=== PATIENT | female | born 1990 | race Caucasian/White ===

== ENCOUNTER 2021-01-27 11:58 | Day surgery (SDC) | payer OTHER ==
[~2021-01-27] VITALS: Ht 160 cm; Wt 105.2 kg
[2021-01-27 11:59] VITALS: BP 129/59
--- NOTE | 2021-01-27 12:00 | NUR ---
Pt ambulated to bed 7.
--- NOTE | 2021-01-27 12:01 | NUR ---
30 Y/O F referred by Dr. Gilliland d/t miscarriage that began earlier today, no heart tones were present during exam. Pt reports peach colored light peach colored spotting that only appears when she wipes x1week . Denies n/v/d, edema, cough, SOB, palpitations, abd pain/cramping. PMH: TB, miscarriages, HTN, gestational HTN. Allx: rifampin, isoniazid SurHx: DNC, laparoscopy Rx: denies
--- NOTE | 2021-01-27 12:05 | NUR ---
Dr. Wu at bedside.
--- NOTE | 2021-01-27 12:46 | NUR ---
labs collected and given to aquatic life laborer
[2021-01-27 12:52] LABS: BASOPHILS % (AUTO) 0.3 % (0.0-2.0); EOSINOPHILS % (AUTO) 0.4 % (0.0-4.0); HEMATOCRIT 40.1 % (36-48); HEMOGLOBIN 13.2 g/dL (12.0-16.0); LYMPHOCYTES # (AUTO) 1.7 K/uL (2.5-16.5); LYMPHOCYTES % (AUTO) 15.5 % (20.5-51.1); MEAN CORPUSCULAR HEMOGLOBIN 28 pg (27-31); MEAN CORPUSCULAR HGB CONC 33 g/dL (33-37); MEAN CORPUSCULAR VOLUME 83.8 fL (80-94); MONOCYTES # (AUTO) 0.6 K/uL (0.8-1.0); MONOCYTES % (AUTO) 5.2 % (1.7-9.3); NEUTROPHILS # (AUTO) 8.8 K/uL (1.8-7.7); NEUTROPHILS % (AUTO) 78.6 % (42.2-75.2); PLATELET COUNT (AUTO) 249 K/uL (140-450); RED BLOOD CELL COUNT(AUTO) 4.79 MIL/uL (4.20-5.40); RED CELL DISTRIBUTION WIDTH 15.9 % (11.6-13.7); WHITE BLOOD COUNT (AUTO) 11.2 K/uL (4.8-10.8)
--- NOTE | 2021-01-27 13:53 | NUR ---
REPORT GIVEN TO COTTON SEED CULLERDERRELL GANNON. PT TAKEN TO OR VIA [facility].
[2021-01-27] MEDS ORDERED: ONDANSETRON 4 MG/2 ML VIAL IVP PRN (14:15)
[2021-01-27] MEDS ORDERED: HYDROmorphone 1 MG/ML AMP IVP PRN (14:15)
[2021-01-27] MEDS ORDERED: PROPOFOL 200 MG/20 ML VIAL IV ONE (14:25)
[2021-01-27] MEDS ORDERED: DEXAMETHASONE 4 MG/ML VIAL ONE (14:25)
[2021-01-27] MEDS ORDERED: ONDANSETRON 4 MG/2 ML VIAL ONE (14:25)
[2021-01-27] MEDS ORDERED: KETOROLAC 30 MG/ML VIAL ONE (14:25)
[2021-01-27] MEDS ORDERED: DESFLURANE 240 ML BTL INH ONE (14:25)
[2021-01-27] MEDS ORDERED: METOCLOPRAMIDE 10 MG/2 ML INJ VIAL ONE ×2 (14:25→15:05)
--- NOTE | 2021-01-27 15:49 | NUR ---
PT RECEIVED FROM OR NURSE.. PT RESTING IN BED EYES CLOSED. EASY TO AROUSE.NO S/S OF DISTRESS. CALL LIGHT IS WITHIN REACH. WILL CONTINUE TO MONITOR
[2021-01-27 16:22] VITALS: BP 118/64
--- NOTE | 2021-01-27 17:15 | NUR ---
PT VOIDED. PT DISCHARGED PER MD ORDER. PT STABLE ABLE TO AMBULATE. PT LEFT VIA WHEEL NATALIYA. PT EDUCATED AND VEBALIZED UNDERSTANDING FOR CONTINUITY OF CARE. PT IV REMOVED. CANULA INTACT. PT ID BANDS REMOVED. PT LEFT IN PRIVATE VEHICLE WITH FAMILY.
== END 2021-01-27 17:15 | disposition home or self-care (01) ==
LOC: MED 11:58 → MDS 13:03 → MTU 13:03 → MDS 17:15
PROVIDERS: ATTEND Obstetrics & Gynecology
DX: O03.4 Incomplete spontaneous abortion without complication (principal); I10 Essential (primary) hypertension; J45.909 Unspecified asthma, uncomplicated
CPT/HCPCS: 36415; 59812; 85025; 86886; 86900; 86901; 87426; 88305; J1100; J1885; J2405; J2704; J2765; J7030

== ENCOUNTER 2022-10-18 15:29 | Inpatient (IN) | payer OTHER ==
[2022-10-17 16:30] VITALS: BP 127/57
[~2022-10-18] VITALS: Ht 160 cm; Wt 113.9 kg
[2022-10-18] MEDS ORDERED: ONDANSETRON 4 MG/2 ML VIAL IVP PRN (16:40)
[2022-10-18] MEDS ORDERED: METHYLERGONOVINE 0.2 MG/ML AMP IM PRN (16:40)
[2022-10-18] MEDS ORDERED: MORPHINE SULFATE 10 MG/ML VIAL IVP PRN (16:50)
[2022-10-18 17:25] LABS: BASOPHILS % (AUTO) 0.2 % (0.0-2.0); EOSINOPHILS % (AUTO) 0.4 % (0.0-4.0); HEMOGLOBIN 12.5 g/dL (12.0-16.0); LYMPHOCYTES % (AUTO) 11.8 % (20.5-51.1); MEAN CORPUSCULAR HEMOGLOBIN 29 pg (27-31); MEAN CORPUSCULAR HGB CONC 33 g/dL (33-37); MEAN CORPUSCULAR VOLUME 88.5 fL (80-94); MONOCYTES # (AUTO) 0.5 K/uL (0.8-1.0); MONOCYTES % (AUTO) 6.1 % (1.7-9.3); NEUTROPHILS % (AUTO) 81.5 % (42.2-75.2); PLATELET COUNT (AUTO) 175 K/uL (140-450); RED CELL DISTRIBUTION WIDTH 14.4 % (11.6-13.7); WHITE BLOOD COUNT (AUTO) 8.6 K/uL (4.8-10.8)
[2022-10-18 17:48] LABS: APPEARANCE,URINE CLOUDY (CLEAR); BILIRUBIN,URINE NEGATIVE (NEGATIVE); BLOOD, URINE 2+ (NEGATIVE); COLOR,URINE YELLOW (YELLOW); LEUKOCYTE ESTERASE ,URINE 2+ (NEGATIVE); NITRITE, URINE NEGATIVE (NEGATIVE); UGLUCOSE NEGATIVE (NEGATIVE)
[2022-10-18 17:48] LABS: PROTHROMBIN TIME 9.1 secs (10.8-13.4)
[2022-10-18 17:53] LABS: ALBUMIN 2.5 g/dL (3.4-5.0); ANION GAP 14.4 (8-16); CARBON DIOXIDE 23.5 mmol/L (21-32); CREATININE 0.9 mg/dL (0.6-1.3); POTASSIUM 3.9 mmol/L (3.5-5.1); TOTAL BILIRUBIN 0.2 mg/dL (0.0-1.0)
[2022-10-18 17:55] LABS: CALCIUM OXALATE CRYSTALS,UR 0-10 /HPF (None Seen); RBC,URINE 0-5 /HPF (0-5); WBC,URINE 16-25 (MOD) /HPF (0-5)
[2022-10-18] MEDS: LACTATED RINGERS 1,000 ML IV SCH ×2 (18:07→23:35)
[2022-10-18] MEDS: MISOPROSTOL 25 MCG TAB VG SCH (18:17)
[2022-10-18] MEDS ORDERED: ASPI-1822 PO (22:00)
[2022-10-18] MEDS ORDERED: DOCU-299 PO (22:01)
[2022-10-18] MEDS ORDERED: PREN1CTB21 PO (22:04)
[2022-10-18] MEDS ORDERED: FERR325E14 PO (22:04)
[2022-10-18] MEDS ORDERED: VITA400T14 PO (22:06)
[2022-10-18] MEDS ORDERED: VITA1TAB44 PO (22:07)
[2022-10-18] MEDS ORDERED: MULTIVIT/MIN/CA/FE/FA 1 TAB ONE (22:22)
[2022-10-19] MEDS: MISOPROSTOL 25 MCG TAB VG SCH ×3 (00:29→12:47)
[2022-10-19] MEDS ORDERED: FOLIC ACID PO SCH (09:00)
[2022-10-19] MEDS ORDERED: MULTIVIT/MIN/CA/FE/FA 1 TAB PO SCH (09:00)
[2022-10-19] MEDS ORDERED: IRON PO SCH (09:00)
[2022-10-19] MEDS ORDERED: PRENATAL VIT37 PO SCH (09:00)
--- NOTE | 2022-10-19 09:00 | NUR ---
PATIENT HAS BEEN SCREENED AND CATEGORIZED LOW NUTRITION RISK. PATIENT WILL BE SEEN WITHIN 7 DAYS OF ADMISSION. 10/25/22 REVIEWED BY WESTLEY YEPEZ RD
[2022-10-19] MEDS ORDERED: INSULIN LISPRO SLIDING SCALE 100 UNITS/ML VIAL SUBQ PRN (10:55)
[2022-10-19] MEDS ORDERED: OXYTOCIN 20 UNITS in LACTATED RINGERS 1,000 ML IV SCH (13:50)
[2022-10-19] MEDS ORDERED: OXYTOCIN 20 UNITS/LR PREMIX 1,000 ML IV ONE (14:12)
[2022-10-19] MEDS: LACTATED RINGERS 1,000 ML IV SCH ×2 (16:23→18:55)
[2022-10-19] MEDS ORDERED: ROPIVACAINE 0.2%/NS PREMIX 200 ML EPI ONE (18:20)
[2022-10-19] MEDS ORDERED: ROPIVACAINE 0.2%/NS PREMIX 100 ML EPI SCH (18:55)
[2022-10-20] MEDS: LACTATED RINGERS 1,000 ML IV SCH (01:34)
[2022-10-20] MEDS ORDERED: ROPIVACAINE 0.2%/NS PREMIX 200 ML EPI ONE (07:59)
[2022-10-20] MEDS ORDERED: CITRIC ACID/SODIUM CITRATE 30 ML UDC PO ONE (09:05)
[2022-10-20] MEDS ORDERED: MORPHINE PRES FREE 10 MG/10 ML AMP IV ONE (09:37)
[2022-10-20] MEDS ORDERED: LIDOCAINE/EPI MPF 2%1:200000 10 ML VIAL INJ ONE (09:38)
[2022-10-20] MEDS ORDERED: LIDOCAINE MPF 2% 100 MG/5 ML VIAL INJ ONE ×2 (09:39→10:15)
[2022-10-20] MEDS ORDERED: ceFAZolin 2,000 MG VIAL ONE ×2 (09:44→10:15)
[2022-10-20] MEDS ORDERED: oxyCODONE/APAP 5/325 MG 1 TAB TAB PO PRN (09:55)
[2022-10-20] MEDS ORDERED: METHYLERGONOVINE 0.2 MG/ML AMP IM PRN (09:55)
[2022-10-20] MEDS ORDERED: MEASLES, MUMPS, AND RUBELLA 1 VIAL SQVAC ONE (09:55)
[2022-10-20] MEDS ORDERED: diphenhydrAMINE 50 MG/ML VIAL IVP PRN ×2 (10:00)
[2022-10-20] MEDS ORDERED: BLOOD GLUCOSE MONITORING 1 DEV DEV FS ONE (10:00)
[2022-10-20] MEDS ORDERED: NALOXONE 0.4 MG/ML VIAL IVP PRN ×3 (10:00)
[2022-10-20] MEDS ORDERED: NALBUPHINE 10 MG/ML AMP IVP PRN (10:00)
[2022-10-20] MEDS ORDERED: MEPERIDINE 25 MG/ML SYR IVP PRN (10:00)
[2022-10-20] MEDS ORDERED: HYDROmorphone 1 MG/ML AMP IVP PRN (10:00)
[2022-10-20] MEDS ORDERED: LACTATED RINGERS 1,000 ML IV SCH (10:00)
[2022-10-20] MEDS ORDERED: ONDANSETRON 4 MG/2 ML VIAL IVP PRN ×2 (10:00)
[2022-10-20] MEDS ORDERED: MORPHINE SULFATE 5 MG/ML VIAL ONE (10:15)
[2022-10-20] MEDS ORDERED: OXYTOCIN 10 UNITS/ML VIAL ONE (10:15)
[2022-10-20] MEDS ORDERED: ONDANSETRON 4 MG/2 ML VIAL ONE (10:15)
[2022-10-20] MEDS ORDERED: MEASLES, MUMPS, AND RUBELLA 1 VIAL SQVAC SCH (10:15)
[2022-10-20] MEDS ORDERED: DEXAMETHASONE 10 MG/ML VIAL ONE (10:15)
[2022-10-20] MEDS ORDERED: PROPOFOL 200 MG/20 ML VIAL IV ONE (10:15)
[2022-10-20] MEDS ORDERED: OXYTOCIN 20 UNITS/LR PREMIX 1,000 ML IV ONE ×2 (10:22→23:08)
--- NOTE | 2022-10-20 10:26 | NUR ---
DR. ANSELMO CARLISLE ATTENDING; Jody BARRAGAN RCP ATTENDING L&D; FHR 162; 9/9; WEIGHT 7lbs 4oz; WITH STRONG CRY AT ; TACTILE STIMULATION AND DRYING/WIPING (VERNIX); OROPHARYNX SUCTIONING FOR SMALL THIN CLEAR SECRETIONS AIRWAY PATENT; PRIMER POWDER BLENDER WET ACCOMPANIED TO NURSERY
[2022-10-20] MEDS: OXYTOCIN 20 UNITS in LACTATED RINGERS 1,000 ML IV SCH ×3 (12:02→23:13)
[2022-10-20] MEDS: KETOROLAC 30 MG/ML VIAL IM/IVP SCH (17:18)
[2022-10-21] MEDS: KETOROLAC 30 MG/ML VIAL IM/IVP SCH (00:01)
[2022-10-21] MEDS ORDERED: OXYTOCIN 20 UNITS/LR PREMIX 1,000 ML IV ONE (06:54)
[2022-10-21] MEDS: OXYTOCIN 20 UNITS in LACTATED RINGERS 1,000 ML IV SCH (07:03)
[2022-10-21] MEDS ORDERED: bisacodyL 10 MG SUPP RC SCH (09:00)
[2022-10-21] MEDS: DOCUSATE SODIUM 100 MG GELCAP PO SCH (09:17)
[2022-10-21] MEDS: FERROUS SULFATE 325 MG TABEC PO SCH (09:18)
[2022-10-21] MEDS: ASPIRIN 81 MG TAB.CHEW PO SCH (09:21)
[2022-10-21] MEDS: VIT-B COMP/VIT-C/FOLIC ACID 1 TAB PO SCH (09:22)
[2022-10-21] MEDS: VITAMIN D 400 IU TAB PO SCH (09:23)
[2022-10-21] MEDS: IBUPROFEN 600 MG TAB PO SCH ×3 (09:27→21:57)
[2022-10-21] MEDS: oxyCODONE/APAP 5/325 MG 1 TAB TAB PO PRN (14:46)
[2022-10-22] MEDS: oxyCODONE/APAP 5/325 MG 1 TAB TAB PO PRN (03:19)
[2022-10-22] MEDS ORDERED: CAMERA MC ONE (03:59)
[2022-10-22 05:49] LABS: BASOPHILS % (AUTO) 0.2 % (0.0-2.0); EOSINOPHILS # (AUTO) 0.1 K/uL (0-0.4); EOSINOPHILS % (AUTO) 0.9 % (0.0-4.0); HEMATOCRIT 29.7 % (36-48); LYMPHOCYTES # (AUTO) 1.3 K/uL (2.5-16.5); LYMPHOCYTES % (AUTO) 12.9 % (20.5-51.1); MEAN CORPUSCULAR HEMOGLOBIN 30 pg (27-31); MEAN CORPUSCULAR HGB CONC 34 g/dL (33-37); MEAN CORPUSCULAR VOLUME 88.1 fL (80-94); MONOCYTES # (AUTO) 0.9 K/uL (0.8-1.0); MONOCYTES % (AUTO) 8.8 % (1.7-9.3); NEUTROPHILS # (AUTO) 7.7 K/uL (1.8-7.7); NEUTROPHILS % (AUTO) 77.2 % (42.2-75.2); PLATELET COUNT (AUTO) 160 K/uL (140-450); RED BLOOD CELL COUNT(AUTO) 3.37 MIL/uL (4.20-5.40); RED CELL DISTRIBUTION WIDTH 14.2 % (11.6-13.7)
[2022-10-22] MEDS: FERROUS SULFATE 325 MG TABEC PO SCH (08:53)
[2022-10-22] MEDS: DOCUSATE SODIUM 100 MG GELCAP PO SCH (08:53)
[2022-10-22] MEDS: IBUPROFEN 600 MG TAB PO SCH ×2 (08:54→12:58)
[2022-10-22] MEDS: ASPIRIN 81 MG TAB.CHEW PO SCH (08:55)
[2022-10-22] MEDS: VIT-B COMP/VIT-C/FOLIC ACID 1 TAB PO SCH (08:55)
[2022-10-22] MEDS: VITAMIN D 400 IU TAB PO SCH (08:55)
== END 2022-10-22 14:48 | disposition home or self-care (01) | DRG 540 ==
LOC: MLD 15:29 → MFCC 10-20 12:50
PROVIDERS: ADMIT Obstetrics & Gynecology; ATTEND Obstetrics & Gynecology
PROC: 3E033VJ Introduction of Other Hormone into Peripheral Vein, Percutaneous Approach (ICD-10-PCS; 2022-10-20)
PROC: 3E0234Z Introduction of Serum, Toxoid and Vaccine into Muscle, Percutaneous Approach (ICD-10-PCS; 2022-10-20)
PROC: 10D00Z1 Extraction of Products of Conception, Low, Open Approach (ICD-10-PCS; principal; 2022-10-20 10:00)
DX: O32.6XX0 Maternal care for compound presentation, not applicable or unspecified (principal); O24.429 Gestational diabetes mellitus in childbirth, unspecified control; Z20.822 Contact with and (suspected) exposure to COVID-19; Z3A.37 37 weeks gestation of pregnancy; Z37.0 Single live birth; Z23 Encounter for immunization
CPT/HCPCS: 36415; 51702; 59200; 76815; 80053; 81001; 82948; 85025; 85610; 85730; 86592; 86886; 86900; 86901; 87086; J0690; J1100; J1200; J1815; J1885; J2001; J2270; J2405; J2590; J2704; J2795; J7060; Q0092

== ENCOUNTER 2023-07-30 05:05 | Inpatient (IN) | payer OTHER ==
[~2023-07-30] VITALS: Ht 160 cm; Wt 122.9 kg
[~2023-07-30 05:05] MED LIST: DOCU-299 PO; FERR325E14 PO; PREN1CTB21 PO; VITA1TAB44 PO; VITA400T14 PO
[2023-07-30 05:32] VITALS: BP 126/56; PULSE 84; RESP 18; TEMP 96.9; O2SAT 99
[2023-07-30 05:46] LABS: BASOPHILS # (AUTO) 0.1 K/uL (0.00-0.22); BASOPHILS % (AUTO) 0.7 % (0.0-2.0); EOSINOPHILS # (AUTO) 0.1 K/uL (0-0.4); EOSINOPHILS % (AUTO) 1.3 % (0.0-4.0); HEMATOCRIT 40.4 % (36-48); LYMPHOCYTES # (AUTO) 1.8 K/uL (2.5-16.5); MEAN CORPUSCULAR HEMOGLOBIN 27 pg (27-31); MEAN CORPUSCULAR HGB CONC 32 g/dL (33-37); MEAN CORPUSCULAR VOLUME 82.9 fL (80-94); MONOCYTES # (AUTO) 0.6 K/uL (0.8-1.0); MONOCYTES % (AUTO) 7.9 % (1.7-9.3); NEUTROPHILS # (AUTO) 5.1 K/uL (1.8-7.7); NEUTROPHILS % (AUTO) 67.1 % (42.2-75.2); PLATELET COUNT (AUTO) 235 K/uL (140-450); RED BLOOD CELL COUNT(AUTO) 4.88 MIL/uL (4.20-5.40); RED CELL DISTRIBUTION WIDTH 16.4 % (11.6-13.7); WHITE BLOOD COUNT (AUTO) 7.6 K/uL (4.8-10.8)
[2023-07-30 06:07] LABS: ALBUMIN 3.6 g/dL (3.4-5.0); ANION GAP 12.7 (8-16); CALCIUM 9.8 mg/dL (8.5-10.1); CARBON DIOXIDE 25.7 mmol/L (21-32); POTASSIUM 4.4 mmol/L (3.5-5.1); TOTAL BILIRUBIN 0.2 mg/dL (0.0-1.0); TOTAL PROTEIN, SERUM 7.8 g/dL (6.4-8.2)
[2023-07-30] MEDS ORDERED: LACTATED RINGERS 1,000 ML IV SCH (06:10)
[2023-07-30 06:40] LABS: INR 0.92 (0.8-1.2); PARTIAL THROMBOPLASTIN TIME 30.7 secs (22-35.6); PROTHROMBIN TIME 9.7 secs (10.8-13.4)
[2023-07-30 07:16] VITALS: O2SAT 93
[2023-07-30] MEDS ORDERED: LIDOCAINE/EPI MPF 1%1:200000 30 ML VIAL INJ ONE (07:34)
[2023-07-30] MEDS ORDERED: BUPIVACAINE-MPF 0.25% 30 ML VIAL INJ ONE (07:35)
[2023-07-30] MEDS ORDERED: MIDAZOLAM 2 MG/2 ML VIAL ONE (08:14)
[2023-07-30] MEDS ORDERED: fentaNYL citrate 0.05 MG/ML VIAL ONE (08:15)
[2023-07-30] MEDS ORDERED: MISOPROSTOL 200 MCG TAB ONE (08:23)
[2023-07-30] MEDS ORDERED: PROPOFOL 1000 MG/100 ML PREMIX 100 ML IV ONE (08:27)
[2023-07-30] MEDS ORDERED: oxyCODONE/APAP 5/325 MG 1 TAB TAB PO PRN (08:40)
[2023-07-30] MEDS ORDERED: diphenhydrAMINE 50 MG/ML VIAL IVP PRN (08:40)
[2023-07-30] MEDS ORDERED: ONDANSETRON 4 MG/2 ML VIAL IVP PRN (08:40)
[2023-07-30] MEDS ORDERED: HYDROmorphone PFS 2 MG/ML SYR ONE (09:27)
[2023-07-30] MEDS: HYDROmorphone 1 MG/ML AMP IVP PRN ×2 (09:30→09:40)
[2023-07-30 10:25] VITALS: BP 125/73; PULSE 82; RESP 18; TEMP 97.9; O2SAT 99
[2023-07-30 10:30] VITALS: RESP 18; O2SAT 99
== END 2023-07-30 13:30 | disposition home or self-care (01) | DRG 543 ==
LOC: MED 05:05 → MTU 06:15 → MED 13:30
PROVIDERS: ADMIT Obstetrics & Gynecology; ATTEND Obstetrics & Gynecology
PROC: 10D17ZZ Extraction of Products of Conception, Retained, Via Natural or Artificial Opening (ICD-10-PCS; principal; 2023-07-30 09:00)
DX: O03.4 Incomplete spontaneous abortion without complication (principal); E11.9 Type 2 diabetes mellitus without complications; E66.9 Obesity, unspecified
CPT/HCPCS: 36415; 76856; 80053; 85025; 85610; 85730; 86900; 86901; 99285; J1170; J2001; J2250; J2704; J3010; J3490; J7030; J7120